=== PATIENT | male | born 2005 | race Native Hawaiian/Other Pacific Islander ===

== ENCOUNTER 2025-03-01 11:18 | Outpatient (REF) | payer MEDICAID, SELFPAY ==
--- OUTSIDE RECORDS SUMMARY | 2025-03-01 10:15 | XMS_ITS | Encounter Summary ---
Author Organization [employer] Address [address] [place] [address] [address] [place] [address] Care Team Providers Care Teen Counselor Name Role Phone Unavailable Primary Care Provider Unavailabl e Reason for Referral * Consultation (Routine) - Authorized Specialty Diagnoses / Procedures Referred By Contac t Referred To Contact Optometry Diagnoses Annual physical exam Lory Johnson MD [address] [place] [address] Phone: tel: fax: [facility] OPT[facility]ET[facility] [address] [place] [phone] Phone: tel: fax: Referral ID Status Reason Start Date Expiration Date Visits Requested Visits Authorized [id number] Authorized Consult and Treat 03/01/2025 03/01/2026 1 1 Encounter Details Date Type Department Care Team (Late st Contact Info) Description 03/01/2025 10:15 AM EDT Office Visit [facility] MED[facility] [address] [place] [id number] Lory Johnson MD [address] [place] [id number] Annual physical exam (Primary Dx) Social History Tobacco Use Types Packs/Day Years Used Date Smoking Tobacco: Never Passive Smoke Exposure: Never Smokeless Tobacco: Never Tobacco Cessation:Counseling Given: Not Answered Depression Answer Date Recorded Patient Health Questionnaire-9 Score 1 03/01/2025 Patient Health Questionnaire-9 Score 1 03/01/2025 Last PHQ-9: Questionnaire Data Not on file 0 03/01/2025 Housing Stability Answer Date Recorded What is your housing situation today? I have venkatesh lopez 02/22/[address] you li ve. Do you have problems with any of the following? None of the above 02/22/2025 Food Insecurity Answer Date Recorded Within the past 12 months, y ou worried that your food would run out before you got money to buy more: Never True 02/22/2025 Within the past 12 months,th e food you bought just didn't last and you didn't have enough money to get more: Never True Transportation Answer Date Recorded In the past 12 months, has l ack of transportation kept you from medical appts, meetings, work or from getting things needed for daily living? No 02/22/2025 Utilities Answer Date Recorded In the past 12 months, has t he electric, gas, oil or water company threatened to shut off services in your home? No 02/22/2025 Depression Answer Date Recorded Patient Health Questionnaire-2 Score 1 03/01/2025 Internet Access Answer Date Recorded Internet Access Q1 Yes 02/22/2025 Internet Access Q2 Not on file 02/22/2025 Sex and Gender Information Value Date Recorded Sex Assigned at Male 02/28/2025 10:20 AM EDT Legal Sex Male 1:48 PM EST Gender Identity Male 02/28/2025 10:20 AM EDT Sexual Orientation Straight 03/01/2025 11 :05 AM EDT documented as of this encounter Last Filed Vital Signs Vital Sign Reading Time Taken Comments Blood Pressure 118/66 03/01/2025 10:45 AM EDT Pulse 72 03/01/2025 10:45 AM EDT Temperature 36.3 C (97.3 F) 03/01/2025 10:45 AM EDT Respiratory Rate 20 03/01/2025 10:45 AM EDT Oxygen Saturation 100% 03/01/2025 10:45 AM EDT Inhaled Oxygen Concentration - - Weight 69.4 kg (153 lb) 03/01/2025 10:45 AM EDT Height 174 cm (5' 8.5 ) 03/01/2025 10:45 AM EDT Body Mass Index 22.92 03/01/2025 10:45 AM EDT documented in this encounter Functional Status * Over the past 2 weeks, how often have you been bothered by any of the following problems? Question Answer Date of Assessment Author Patient Health Questionnaire -2 Score 1 03/01/2025 10:47 AM Magdalena Sesay MA * Little interest or pleasure in doing things Answer Date of Assessment Author Several days 03/01/2025 10:47 AM Magdalena Sesay MA * Feeling down, depressed, or hopeless Answer Date of Assessment Author Not at all 03/01/2025 10:47 AM Magdalena Sesay MA * Trouble falling or staying asleep, or sleeping too much Answer Date of Assessment Author Not at all 03/01/2025 10:47 AM Magdalena Sesay MA * Feeling tired or having little energy Answer Date of Assessment Author Not at all 03/01/2025 10:47 AM Magdalena Sesay MA * Poor appetite or overeating Answer Date of Assessment Author Not at all 03/01/2025 10:47 AM Magdalena Sesay MA * Feeling bad about yourself - or that you are a failure or have let yourself or your family down Answer Date of Assessment Author Not at all 03/01/2025 10:47 AM Magdalena Sesay MA * Trouble concentrating on things, such as reading the newspaper or watching television Answer Date of Assessment Author Not at all 03/01/2025 10:47 AM Magdalena Sesay MA * Moving or speaking so slowly that other people could have noticed? Or the opposite - being so fidgety or restless that you have been moving around a lot more than usual. Answer Date of Assessment Author Not at all 03/01/2025 10:47 AM Magdalena Sesay MA * Thoughts that you would be better off or hurting yourself in some way Answer Date of Assessment Author Not at all 03/01/2025 10:47 AM Magdalena Sesay MA * Patient Health Questionnaire-9 Score Answer Date of Assessment Author 1 03/01/2025 10:47 AM Magdalena Sesay MA * How difficult have these problems made it for you to do your work, take care of things at home, or get along with other people? Answer Date of Assessment Author Not difficult at all 03/01/2025 10:47 AM EDT Magdalena Piedra MA * Over the last 2 weeks, how often have you been bothered by any of the following problems? Question Answer Date of Assessment Author Feeling nervous, anxious, or on edge 0 03/01/2025 10:47 AM EDT Magdalena Kang MA Not being able to stop or co ntrol worrying 0 03/01/2025 10:47 AM EDT Magdalena Kang MA Worrying too much about diff erent things 0 03/01/2025 10:47 AM EDT Magdalena Kang MA Trouble relaxing 0 03/01/2025 10:47 AM EDT Magdalena Kang MA Being so restless that it is hard to sit still 0 03/01/2025 10:47 AM EDT Magdalena Kang MA Becoming easily annoyed or irritable 0 03/01/2025 10:47 AM EDT Magdalena Kang MA Feeling afraid as if somethi ng awful might happen 0 03/01/2025 10:47 AM VALERIAT Magdalena Kang MA CAMELIA-7 Total Score 0 03/01/2025 10:47 AM Magdalena Sesay MA documented as of this encounter Plan of Treatment Scheduled Orders Name Type Priority Associated Diagnoses Orde r Schedule CBC Lab Routine Annual physical exam Expected: 03/01/2025 (Approximate), Expires: 03/01/2026 Chlamydia/Trichomonas/Neiss eria gonorrhoeae, PCR, Urine Lab Routine Annual physical exam Ordered: 03/01/2025 Comprehensive Metabolic Panel Lab Routine Annual physical exam Expected: 03/01/2025 (Approximate), Expires: 03/01/2026 Hepatitis B Core Antibody, Total Lab Routine Annual physical exam Expected: 03/01/2025 (Approximate), Expires: 03/01/2026 Hepatitis B Surface Antibody, Qualitative Lab Routine Annual physical exam Expected: 03/01/2025 (Approximate), Expires: 03/01/2026 Hepatitis B surface antigen, EIA Lab Routine Annual physical exam Expected: 03/01/2025 (Approximate), Expires: 03/01/2026 Hepatitis C Antibody with Reflex to HCV, RNA, Quantitative, Real-Time PCR Lab Routine Annual physical exam Expected: 03/01/2025 (Approximate), Expires: 03/01/2026 HIV-1/2 Antigen and Antibodies, Fourth Generation, with Reflexes Lab Routine Annual physical exam Expected: 03/01/2025 (Approximate), Expires: 03/01/2026 Syphilis Screen Lab Routine Annual physical exam Expected: 03/01/2025 (Approximate), Expires: 03/01/2026 T-SPOT .TB Lab Routine Annual physical exam Expected: 03/01/2025 (Approximate), Expires: 03/01/2026 Scheduled Referrals Name Type Priority Associated Diagnoses Orde r Schedule Referral to [facility] Eye Care Outpatient Referral Routine Annual physical exam Expected: 03/01/2025 (Approximate), Expires: 03/01/2026 documented as of this encounter Visit Diagnoses Diagnosis Annual physical exam- Primary Routine general medical examination at a health care facility documented in this encounter Additional Health Concerns Assessment Noted Time PHQ-9 Depression Total Score: 1 03/01/20 25 10:47 AM EDT documented as of this encounter
[2025-03-01 13:22] LABS: Hematocrit 48.4 % (42.0-52.0); Hemoglobin 16.0 g/dl (14.0-18.0); Mean Corpuscular HGB Conc 33.1 g/dl (31.0-36.0); Mean Corpuscular Hemoglobin 28.0 pg (27.0-33.0); Mean Corpuscular Volume 84.8 fL (80.0-98.0); NRBC Abs Auto 0.000 X10*3/uL (0.0-0.012); NRBC Pct Auto 0.0 /100WBC (0.0-0.2); Platelet Count 206 X10*3/uL (160-400); Red Blood Count 5.71 X10*6/uL (4.60-5.80); White Blood Count 5.1 X10*3/uL (4.8-10.8)
[2025-03-01 13:52] LABS: Alanine Aminotransferase 21 U/L (0-40); Albumin Level 5.2 g/dL (3.5-5.0); Alkaline Phosphatase 91 U/L (39-117); Anion Gap 13 (12-20); Aspartate Amino Transferase 28 U/L (5-37); Blood Urea Nitrogen 15 mg/dL (9-16); Calcium 9.4 mg/dL (8.4-10.2); Carbon Dioxide 28 mmol/L (22-29); Chloride 104 mmol/L (96-108); Estimated Glomerular Filt Rate > 60; Potassium 4.3 mmol/L (3.3-5.1); Sodium 141 mmol/L (135-145); Total Protein 8.1 g/dL (6.5-8.0)
[2025-03-01 14:13] LABS: Syphilis Screen Nonreactive (Nonreactive)
[2025-03-01 14:15] LABS: HBS Num1 324.35 mIU/mL (0-7.99); HBc Num1 0.06 S/CO (0.00-0.79); HBsAGNum1 0.33 S/CO (0.00-0.99); HIV Num 1 0.05 S/CO (0.00-0.99); Hepatitis B Surface Antigen Negative (Negative); ~HepC Num1 0.13 S/CO (0.00-0.79); ~Hepatitis B Surface Antibody REACTIVE (Nonreactive); ~Hepatitis C Antibody Nonreactive (Nonreactive)
[2025-03-01 15:17] LABS: CT PCR Urine NOT DETECTED (Not Detect.); NG PCR Urine NOT DETECTED (Not Detect.)
[2025-03-04 07:03] LABS: TS Negative Control Passed; TS Panel A 0; TS Panel B 0; TS Positive Control Passed; TSpotTB Negative (Negative)
== END 2025-03-01 11:19 | disposition home or self-care (01) ==
LOC: HO.HHCL 11:18
PROVIDERS: PCP Student in an Organized Health Care Education/Training Program; Visit Provider Student in an Organized Health Care Education/Training Program
DX: Z00.00 Encounter for general adult medical examination without abnormal findings (principal); Z11.59 Encounter for screening for other viral diseases; Z11.1 Encounter for screening for respiratory tuberculosis; Z11.8 Encounter for screening for other infectious and parasitic diseases; Z11.3 Encounter for screening for infections with a predominantly sexual mode of transmission; Z11.4 Encounter for screening for human immunodeficiency virus [HIV]
CPT/HCPCS: 36415; 80053; 85027; 86481; 86704; 86706; 86780; 86803; 87340; 87389; 87491; 87591